=== PATIENT | male | born 1965 | race Caucasian/White ===

== ENCOUNTER 2017-01-10 10:36 | Emergency (ER) | payer SELFPAY ==
[~2017-01-10] VITALS: Ht 165.1 cm; Wt 74.4 kg
[2017-01-10] MEDS ORDERED: KETOROLAC TROMETHAMINE 30 MG/ML INJ. IV ONE (11:15)
[2017-01-10] MEDS ORDERED: ONDANSETRON PF 4 MG/2 ML VIAL. IV ONE (11:15)
[2017-01-10] MEDS ORDERED: PANTOPRAZOLE IV PUSH 40 MG VIAL. IVP ONE (11:15)
[2017-01-10 11:55] LABS: BASO % 1 % (0-3); EOS % 1 % (0-3); HEMATOCRIT 42.1 % (39.0-53.0); HEMOGLOBIN 14.8 g/dL (13.0-17.5); LYMPH # 0.8 x10^3/uL (1.0-4.8); LYMPH % 15 % (24-48); MEAN CORPUSCULAR HEMOGLOBIN 31 pg (25-35); MEAN CORPUSCULAR HGB CONC 35 g/dL (31-37); MEAN CORPUSCULAR VOLUME 88 fL (79-100); MONO % 8 % (0-9); NEUT % 76 % (31-73); PLATELET COUNT 106 x10^3/uL (140-400); RED BLOOD COUNT 4.79 x10^6/uL (4.30-5.70); RED CELL DISTRIBUTION WIDTH 13.7 % (11.5-14.5); WHITE BLOOD COUNT 5.3 x10^3/uL (4.0-11.0)
[2017-01-10 12:01] LABS: CALCIUM 8.5 mg/dL (8.5-10.1); CREATININE 1.1 mg/dL (0.7-1.3)
[2017-01-10 12:07] LABS: ALBUMIN 3.9 g/dL (3.4-5.0); ALBUMIN/GLOBULIN RATIO 1.1 (1.0-1.7); MAGNESIUM 1.9 mg/dL (1.8-2.4); TOTAL BILIRUBIN 0.8 mg/dL (0.2-1.0); TOTAL PROTEIN 7.6 g/dL (6.4-8.2)
[2017-01-10] MEDS ORDERED: IOHEXOL 300 MG/ML 75 ML VIAL IV ONE (12:15)
--- NOTE | 2017-01-10 12:48 | RAD ---
Indication: Right upper quadrant pain today. Technique: Axial images and coronal and sagittal reformatted images are provided. 75 mL of intravenous Omnipaque 300 was administered without complication. No comparison is available. One or more of the following individualized dose reduction techniques were utilized for this examination: 1. Automated exposure control 2. Adjustment of the mA and/or kV according to patient size 3. Use of iterative reconstruction technique Findings: The lung bases are clear. There is no pleural effusion. The heart is not enlarged. There is mild fatty infiltration of the liver. Density in the gallbladder near its neck could represent stone. Pancreas and adrenals are unremarkable. Spleen is enlarged. There is atheromatous disease in the abdominal aorta. There is stranding of the right perinephric fat and delay in nephrogram phase. There are right renal nonobstructing calculi up to 3 mm in size. There is also an obstructing stone in the proximal right ureter measuring 12 mm craniocaudal. This is just beyond the UPJ. Lack of oral contrast limits evaluation of bowel. There is no bowel obstruction or mural thickening. There are a few diverticula in the colon without findings of diverticulitis. Appendix is not definitely visualized, there are no secondary findings of an appendicitis. There is no bladder calculus. There are calcified phleboliths. Prostate is not enlarged. There are L5 pars defects. There is grade 1 spondylolisthesis at L5-S1. There are degenerative changes in the spine. Impression: 1. There is a 12 mm obstructing calculus in the proximal right ureter. Additional nonobstructing right renal calculi. 2. Fatty infiltration of the liver. 3. Splenomegaly. 4. Density at the gallbladder neck could represent stone.
--- NOTE | 2017-01-10 12:55 | PHYS DOC ---
Past Medical History Past Medical History: Kidney Stone Past Surgical History: No Surgical History Alcohol Use: None Drug Use: None Adult General Chief Complaint Chief Complaint: ABDOMINAL PAIN HPI HPI Patient is a 51 year old male presenting to the emergency department for evaluation of right upper quadrant and flank pain that started last night and has persisted. Some nausea but no vomiting. He has a history of kidney stones in the past but says that this is different as it is hurting in his abdomen more. He denies any fevers chills diarrhea constipation dysuria or hematuria. Is that his urine is darker than usual however. Review of Systems Review of Systems Constitutional: Denies fever or chills [] Respiratory: Denies cough or shortness of breath [] Cardiovascular: No additional information not addressed in HPI [] GI: + abdominal pain, nausea. No vomiting, bloody stools or diarrhea [] : Denies dysuria or hematuria [] Musculoskeletal: + back pain Current Medications Current Medications Current Medications Medications (Trade) Dose Ordered Sig/Dinora Start Time Stop Time Status Last Admin Dose Admin Iohexol (Omnipaque 300 Mg/ml) 75 ml 1X ONCE 01/10/17 12:15 01/10/17 12:16 DC 01/10/17 12:23 75 ML Ketorolac Tromethamine (Toradol) 30 mg 1X ONCE 01/10/17 11:15 01/10/17 11:18 DC 01/10/17 11:54 30 MG Ondansetron HCl (Zofran) 4 mg 1X ONCE 01/10/17 11:15 01/10/17 11:18 DC 01/10/17 11:56 4 MG Pantoprazole Sodium (Protonix Vial) 40 mg 1X ONCE 01/10/17 11:15 01/10/17 11:18 DC 01/10/17 11:46 40 MG Allergies Allergies Allergies Coded Allergies Type Severity Reaction Last Updated Verified No Known Drug Allergies 01/10/17 No Physical Exam Physical Exam Constitutional: Well developed, well nourished, no acute distress, non-toxic appearance. [] Cardiovascular:Heart rate regular rhythm, no murmur [] Lungs & Thorax: Bilateral breath sounds clear to auscultation [] Abdomen: Bowel sounds normal, soft, No tenderness, no masses, no pulsatile masses. [] Skin: Warm, dry, no erythema, no rash. [] Back: No tenderness, + R CVA tenderness. [] Current Patient Data Vital Signs Vital Signs Date Time Temp Pulse Resp B/P (MAP) Pulse Ox O2 Delivery O2 Flow Rate FiO2 01/10/17 13:30 68 18 119/63 (81) 96 01/10/17 11:58 Room Air 01/10/17 11:10 97.0 97.0 Lab Values Laboratory Tests Test 01/10/17 11:37 01/10/17 13:00 White Blood Count 5.3 x10^3/uL (4.0-11.0) Red Blood Count 4.79 x10^6/uL (4.30-5.70) Hemoglobin 14.8 g/dL (13.0-17.5) Hematocrit 42.1 % (39.0-53.0) Mean Corpuscular Volume 88 fL (79-100) Mean Corpuscular Hemoglobin 31 pg (25-35) Mean Corpuscular Hemoglobin Concent 35 g/dL (31-37) Red Cell Distribution Width 13.7 % (11.5-14.5) Platelet Count 106 x10^3/uL (140-400) L Neutrophils (%) (Auto) 76 % (31-73) H Lymphocytes (%) (Auto) 15 % (24-48) L Monocytes (%) (Auto) 8 % (0-9) Eosinophils (%) (Auto) 1 % (0-3) Basophils (%) (Auto) 1 % (0-3) Neutrophils # (Auto) 4.0 x10^3uL (1.8-7.7) Lymphocytes # (Auto) 0.8 x10^3/uL (1.0-4.8) L Monocytes # (Auto) 0.4 x10^3/uL (0.0-1.1) Eosinophils # (Auto) 0.1 x10^3/uL (0.0-0.7) Basophils # (Auto) 0.0 x10^3/uL (0.0-0.2) Sodium Level 138 mmol/L (136-145) Potassium Level 4.0 mmol/L (3.5-5.1) Chloride Level 105 mmol/L (98-107) Carbon Dioxide Level 27 mmol/L (21-32) Anion Gap 6 (6-14) Blood Urea Nitrogen 16 mg/dL (8-26) Creatinine 1.1 mg/dL (0.7-1.3) Estimated GFR (Cockcroft-Gault) 70.0 BUN/Creatinine Ratio 15 (6-20) Glucose Level 115 mg/dL (70-99) H Calcium Level 8.5 mg/dL (8.5-10.1) Magnesium Level 1.9 mg/dL (1.8-2.4) Total Bilirubin 0.8 mg/dL (0.2-1.0) Aspartate Amino Transferase (AST) 65 U/L (15-37) H Alanine Aminotransferase (ALT) 112 U/L (16-63) H Alkaline Phosphatase 76 U/L (46-116) Creatine Kinase 71 U/L (39-308) Troponin I Quantitative < 0.017 ng/mL (0.000-0.055) XM-Pfc-Z-Type Natriuretic Peptide 65 pg/mL (0-124) Total Protein 7.6 g/dL (6.4-8.2) Albumin 3.9 g/dL (3.4-5.0) Albumin/Globulin Ratio 1.1 (1.0-1.7) Lipase 115 U/L (73-393) Urine Collection Type Unknown Urine Color Yellow Urine Clarity Clear Urine pH 6.0 Urine Specific [place] 1.020 Urine Protein Negative mg/dL (NEG-TRACE) Urine Glucose (UA) Negative mg/dL (NEG) Urine Ketones (Stick) Negative mg/dL (NEG) Urine Blood Large (NEG) Urine Nitrite Negative (NEG) Urine Bilirubin Negative (NEG) Urine Urobilinogen Dipstick 0.2 mg/dL (0.2 mg/dL) Urine Leukocyte Esterase Negative (NEG) Urine RBC 20-40 /HPF (0-2) Urine WBC Occ /HPF (0-4) Urine Squamous Epithelial Cells None /LPF Urine Bacteria Few /HPF (0-FEW) Laboratory Tests 01/10/17 11:37 Laboratory Tests 01/10/17 11:37 EKG EKG [] Radiology/Procedures Radiology/Procedures Indication: Right upper quadrant pain today. Technique: Axial images and coronal and sagittal reformatted images are provided. 75 mL of intravenous Omnipaque 300 was administered without complication. No comparison is available. One or more of the following individualized dose reduction techniques were utilized for this examination: 1. Automated exposure control 2. Adjustment of the mA and/or kV according to patient size 3. Use of iterative reconstruction technique Findings: The lung bases are clear. There is no pleural effusion. The heart is not enlarged. There is mild fatty infiltration of the liver. Density in the gallbladder near its neck could represent stone. Pancreas and adrenals are unremarkable. Spleen is enlarged. There is atheromatous disease in the abdominal aorta. There is stranding of the right perinephric fat and delay in nephrogram phase. There are right renal nonobstructing calculi up to 3 mm in size. There is also an obstructing stone in the proximal right ureter measuring 12 mm craniocaudal. This is just beyond the UPJ. Lack of oral contrast limits evaluation of bowel. There is no bowel obstruction or mural thickening. There are a few diverticula in the colon without findings of diverticulitis. Appendix is not definitely visualized, there are no secondary findings of an appendicitis. There is no bladder calculus. There are calcified phleboliths. Prostate is not enlarged. There are L5 pars defects. There is grade 1 spondylolisthesis at L5-S1. There are degenerative changes in the spine. Impression: 1. There is a 12 mm obstructing calculus in the proximal right ureter. Additional nonobstructing right renal calculi. 2. Fatty infiltration of the liver. 3. Splenomegaly. 4. Density at the gallbladder neck could represent stone. DICTATED and SIGNED BY: CLAIRE MOLINA MD DATE: 01/10/17 1239 Course & Med Decision Making Course & Med Decision Making Patient has very large right ureter stone that is proximal. I told him this is very unlikely to pass on his own that he is insistent on going home and trying to pass it. To the urologist stationary steam engineer Dr. Gomez. He said to go ahead and let him go and he will follow with him later this week and pursue intervention if needed later on. Patient aware and agreeable with plan for discharge and verbalized understanding of the need for short-term urology follow-up and strict ER return precautions discussed including worsening pain fevers vomiting or other general concerns. Dragon Disclaimer Dragon Disclaimer This electronic medical record was generated, in whole or in part, using a voice recognition dictation system. Departure Departure Impression: Primary Impression: Ureteral stone Disposition: HOME, SELF-CARE Condition: GOOD Referrals: FANTASMA GOMEZ DO Patient Instructions: Kidney Stones Additional Instructions: Make sure that you are drinking plenty of water. Take 400 mg of ibuprofen every 6 hours and the Percocet for breakthrough pain. Scripts Ondansetron (ZOFRAN ODT) 4 Mg Tab.rapdis 4 MG PO BID Y for NAUSEA/VOMITING, #10 TAB Prov: COLT RAHMAN DO 01/10/17 Oxycodone/Apap 5-325 (PERCOCET 5-325 MG TABLET) 1 Each Tablet 1 TAB PO PRN Q6HRS Y for PAIN, #20 TAB 0 Refills Prov: COLT RAHMAN DO 01/10/17 Tamsulosin Hcl (FLOMAX) 0.4 Mg Cap.er.24h 0.4 MG PO DAILY, #10 TAB Prov: COLT RAHMAN DO 01/10/17 COLT RAHMAN DO January 10, 2017 12:54
[2017-01-10 13:20] LABS: BILIRUBIN,URINE NEGATIVE (NEG); GLUCOSE,URINE NEGATIVE (NEG); NITRITE,URINE NEGATIVE (NEG); PROTEIN,URINE NEGATIVE (NEG-TRACE); UROBILINOGEN,URINE 0.2 mg/dL (0.2 mg/dL)
[2017-01-10 13:30] VITALS: BP 119/63
[2017-01-10 13:32] LABS: BACTERIA,URINE FEW /HPF (0-FEW); RBC,URINE 20-40 /HPF (0-2); WBC,URINE OCC /HPF (0-4)
[2017-01-10] MEDS ORDERED: OXYC-323 PO (13:45)
[2017-01-10] MEDS ORDERED: TAMS0.4C97 PO (13:45)
[2017-01-10] MEDS ORDERED: ONDA4TAB10 PO (13:45)
--- NOTE | 2017-01-10 14:41 | EKG ---
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
== END 2017-01-10 13:50 | disposition home or self-care (01) ==
LOC: ER 11:50
DX: N20.1 Calculus of ureter (principal)
CPT/HCPCS: 36415; 74177; 80053; 81001; 82550; 83690; 83735; 83880; 84484; 85027; 93005; 96374; 96375; 99285; C9113; J1885; J2405; Q9967

== ENCOUNTER 2017-12-13 10:51 | Emergency (ER) | payer SELFPAY ==
[2017-12-13 11:36] LABS: ADD MAN DIFF? NO
[2017-12-13] MEDS: IV NORMAL SALINE 1000ML BAG 1,000 ML IV (11:36)
[2017-12-13] MEDS: ONDANSETRON PF 4 MG/2 ML VIAL. IV (11:37)
[2017-12-13] MEDS: KETOROLAC 30 MG/ML INJ. IV (11:39)
[2017-12-13 11:42] LABS: BASO % 1 % (0-3); EOS # 0.1 x10^3/uL (0.0-0.7); EOS % 2 % (0-3); HEMATOCRIT 41.4 % (39.0-53.0); HEMOGLOBIN 15.1 g/dL (13.0-17.5); LYMPH # 1.3 x10^3/uL (1.0-4.8); LYMPH % 21 % (24-48); MEAN CORPUSCULAR HEMOGLOBIN 32 pg (25-35); MEAN CORPUSCULAR HGB CONC 36 g/dL (31-37); MEAN CORPUSCULAR VOLUME 87 fL (79-100); MONO # 0.5 x10^3/uL (0.0-1.1); MONO % 7 % (0-9); NEUT # 4.3 x10^3uL (1.8-7.7); NEUT % 70 % (31-73); PLATELET COUNT 119 x10^3/uL (140-400); RED BLOOD COUNT 4.74 x10^6/uL (4.30-5.70); RED CELL DISTRIBUTION WIDTH 12.9 % (11.5-14.5); WHITE BLOOD COUNT 6.1 x10^3/uL (4.0-11.0)
[2017-12-13 12:01] LABS: ANION GAP 7 (6-14); BLOOD UREA NITROGEN 22 mg/dL (8-26); BUN/CREATININE RATIO 16 (6-20); CALCIUM 9.3 mg/dL (8.5-10.1); CARBON DIOXIDE 27 mmol/L (21-32); CHLORIDE 105 mmol/L (98-107); CREATININE 1.4 mg/dL (0.7-1.3); GFR 52.8; GLUCOSE 107 mg/dL (70-99); POTASSIUM 3.8 mmol/L (3.5-5.1); SODIUM 139 mmol/L (136-145)
[2017-12-13 12:06] LABS: ALBUMIN 3.9 g/dL (3.4-5.0); ALBUMIN/GLOBULIN RATIO 0.9 (1.0-1.7); ALK PHOS 87 U/L (46-116); ALT (SGPT) 158 U/L (16-63); AST (SGOT) 91 U/L (15-37); LIPASE 129 U/L (73-393); TOTAL BILIRUBIN 0.9 mg/dL (0.2-1.0); TOTAL PROTEIN 8.1 g/dL (6.4-8.2)
[2017-12-13 13:07] LABS: BILIRUBIN,URINE NEGATIVE (NEG); CLARITY,URINE CLEAR; COLOR,URINE YELLOW; GLUCOSE,URINE NEGATIVE (NEG); NITRITE,URINE NEGATIVE (NEG); PH,URINE 5.5; PROTEIN,URINE NEGATIVE (NEG-TRACE); UROBILINOGEN,URINE 0.2 mg/dL (0.2 mg/dL)
[2017-12-13 13:17] LABS: BACTERIA,URINE 0 /HPF (0-FEW); SQUAMOUS EPITHELIAL CELL,UR FEW /LPF; WBC,URINE 0 /HPF (0-4)
== END 2017-12-13 13:45 | disposition home or self-care (01) ==
LOC: ER 10:51
DX: N20.0 Calculus of kidney (principal)
CPT/HCPCS: 36415; 74176; 80053; 81001; 83690; 85025; 96361; 96374; 96375; 99285-25; J1885; J2405; J7030

== ENCOUNTER 2019-08-26 18:04 | Emergency (ER) | payer SELFPAY ==
[~2019-08-26] VITALS: Ht 172.7 cm; Wt 86.2 kg
[~2019-08-26 18:04] MED LIST: CIPR500T94 PO; KETO10TA PO; ONDA4TAB10 PO; OXYC1TAB15 PO; TAMS0.4C97 PO
--- NOTE | 2019-08-26 18:44 | PHYS DOC ---
Past Medical History Past Medical History: Kidney Stone Past Surgical History: No Surgical History Alcohol Use: Rarely Drug Use: None Adult General Chief Complaint Chief Complaint: SHORTNESS OF BREATH HPI HPI Patient is a 54 year old male who presented to ER today for evaluation of 2 days history of cough, fever and chill, trouble breathing. Patient is exposed to influenza at home. Patient said his and daughter both were tested positive for flu recently. He denies any chest pain, no abdominal pain, no nausea vomiting. Patient denied headache. Patient denies any neck pain. aLL OTHER ros IS NEGATIVE UNLESS OTHERWISE NOTED IN hpi Review of Systems Review of Systems See above Current Medications Current Medications Current Medications Medications (Trade) Dose Ordered Sig/Dinora Start Time Stop Time Status Last Admin Dose Admin Sodium Chloride 1,000 ml @ 1,000 mls/hr 1X ONCE 08/26/19 18:45 08/26/19 19:44 DC 08/26/19 19:04 1,000 MLS/HR Allergies Allergies Allergies Coded Allergies Type Severity Reaction Last Updated Verified No Known Drug Allergies 01/10/17 No Physical Exam Physical Exam Constitutional: Well developed, well nourished, no acute distress, non-toxic appearance. [] HENT: Normocephalic, atraumatic, bilateral external ears normal, oropharynx moist, no oral exudates, nose normal. [] Eyes: PERRLA, EOMI, conjunctiva normal, no discharge. [] Neck: Normal range of motion, no tenderness, supple, no stridor. [] Cardiovascular:Heart rate regular rhythm, no murmur [] Lungs & Thorax: Bilateral breath sounds clear to auscultation [] Abdomen: Bowel sounds normal, soft, no tenderness, no masses, no pulsatile masses. [] Skin: Warm, dry, no erythema, no rash. [] Back: No tenderness, no CVA tenderness. [] Extremities: No tenderness, no cyanosis, no clubbing, ROM intact, no edema. [] Neurologic: Alert and oriented X 3, normal motor function, normal sensory function, no focal deficits noted. [] Psychologic: Affect normal, judgement normal, mood normal. [] Current Patient Data Vital Signs Vital Signs Date Time Temp Pulse Resp B/P (MAP) Pulse Ox O2 Delivery O2 Flow Rate FiO2 08/26/19 19:35 90 20 164/79 (107) 96 Room Air 08/26/19 18:30 99.4 99.4 Lab Values Laboratory Tests Test 08/26/19 18:45 08/26/19 18:50 08/26/19 19:08 Influenza Type A Antigen Positive (NEGATIVE) Influenza Type B Antigen Negative (NEGATIVE) White Blood Count 4.3 x10^3/uL (4.0-11.0) Red Blood Count 5.02 x10^6/uL (4.30-5.70) Hemoglobin 15.2 g/dL (13.0-17.5) Hematocrit 44.0 % (39.0-53.0) Mean Corpuscular Volume 88 fL (79-100) Mean Corpuscular Hemoglobin 30 pg (25-35) Mean Corpuscular Hemoglobin Concent 35 g/dL (31-37) Red Cell Distribution Width 13.3 % (11.5-14.5) Platelet Count 119 x10^3/uL (140-400) L Neutrophils (%) (Auto) 54 % (31-73) Lymphocytes (%) (Auto) 27 % (24-48) Monocytes (%) (Auto) 18 % (0-9) H Eosinophils (%) (Auto) 1 % (0-3) Basophils (%) (Auto) 1 % (0-3) Neutrophils # (Auto) 2.3 x10^3/uL (1.8-7.7) Lymphocytes # (Auto) 1.1 x10^3/uL (1.0-4.8) Monocytes # (Auto) 0.8 x10^3/uL (0.0-1.1) Eosinophils # (Auto) 0.0 x10^3/uL (0.0-0.7) Basophils # (Auto) 0.0 x10^3/uL (0.0-0.2) Sodium Level 136 mmol/L (136-145) Potassium Level 4.0 mmol/L (3.5-5.1) Chloride Level 103 mmol/L (98-107) Carbon Dioxide Level 22 mmol/L (21-32) Anion Gap 11 (6-14) Blood Urea Nitrogen 16 mg/dL (8-26) Creatinine 1.1 mg/dL (0.7-1.3) Estimated GFR (Cockcroft-Gault) 69.2 BUN/Creatinine Ratio 15 (6-20) Glucose Level 104 mg/dL (70-99) H Lactic Acid Level 0.8 mmol/L (0.4-2.0) Calcium Level 8.7 mg/dL (8.5-10.1) Total Bilirubin 1.0 mg/dL (0.2-1.0) Aspartate Amino Transferase (AST) 82 U/L (15-37) H Alanine Aminotransferase (ALT) 105 U/L (16-63) H Alkaline Phosphatase 77 U/L (46-116) Total Protein 8.0 g/dL (6.4-8.2) Albumin 4.1 g/dL (3.4-5.0) Albumin/Globulin Ratio 1.1 (1.0-1.7) Urine Collection Type Unknown Urine Color Yellow Urine Clarity Clear Urine pH 5.5 Urine Specific [place] 1.025 Urine Protein Negative mg/dL (NEG-TRACE) Urine Glucose (UA) Negative mg/dL (NEG) Urine Ketones (Stick) Negative mg/dL (NEG) Urine Blood Negative (NEG) Urine Nitrite Negative (NEG) Urine Bilirubin Negative (NEG) Urine Urobilinogen Dipstick 2.0 mg/dL (0.2 mg/dL) Urine Leukocyte Esterase Negative (NEG) Urine RBC 1-2 /HPF (0-2) Urine WBC 1-4 /HPF (0-4) Urine Bacteria 0 /HPF (0-FEW) Urine Mucus Mod /LPF Laboratory Tests 08/26/19 18:50 Laboratory Tests 08/26/19 18:50 EKG EKG [] Radiology/Procedures Radiology/Procedures [] Course & Med Decision Making Course & Med Decision Making Pertinent Labs and Imaging studies reviewed. (See chart for details) [] Dragon Disclaimer Dragon Disclaimer This electronic medical record was generated, in whole or in part, using a voice recognition dictation system. Departure Departure Impression: Primary Impression: Influenza A Disposition: 01 HOME, SELF-CARE Condition: STABLE Referrals: OWEN GONZALEZ (PCP) FOLLOW UP WITH YOUR DOCTOR NEXT WEEK. Patient Instructions: Influenza A (H1N1) Scripts Oseltamivir Phosphate (TAMIFLU) 75 Mg Capsule 1 CAP PO BID, #10 CAP Prov: MARILIA MAHAN DO 08/26/19 MARILIA MAHAN DO Aug 26, 2019 18:44
[2019-08-26] MEDS ORDERED: IV NORMAL SALINE 1000ML BAG 1,000 ML IV ONE (18:45)
[2019-08-26 19:10] LABS: CALCIUM 8.7 mg/dL (8.5-10.1); CREATININE 1.1 mg/dL (0.7-1.3); GFR 69.2
[2019-08-26 19:12] LABS: BASO % 1 % (0-3); EOS % 1 % (0-3); HEMOGLOBIN 15.2 g/dL (13.0-17.5); LYMPH # 1.1 x10^3/uL (1.0-4.8); LYMPH % 27 % (24-48); MEAN CORPUSCULAR HEMOGLOBIN 30 pg (25-35); MEAN CORPUSCULAR HGB CONC 35 g/dL (31-37); MEAN CORPUSCULAR VOLUME 88 fL (79-100); MONO # 0.8 x10^3/uL (0.0-1.1); MONO % 18 % (0-9); NEUT # 2.3 x10^3/uL (1.8-7.7); NEUT % 54 % (31-73); PLATELET COUNT 119 x10^3/uL (140-400); RED BLOOD COUNT 5.02 x10^6/uL (4.30-5.70); RED CELL DISTRIBUTION WIDTH 13.3 % (11.5-14.5); WHITE BLOOD COUNT 4.3 x10^3/uL (4.0-11.0)
[2019-08-26 19:16] LABS: BILIRUBIN,URINE NEGATIVE (NEG); CLARITY,URINE CLEAR; COLOR,URINE YELLOW; NITRITE,URINE NEGATIVE (NEG); PH,URINE 5.5; PROTEIN,URINE NEGATIVE (NEG-TRACE)
[2019-08-26 19:16] LABS: ALBUMIN 4.1 g/dL (3.4-5.0); ALBUMIN/GLOBULIN RATIO 1.1 (1.0-1.7)
[2019-08-26 19:22] LABS: INFLUENZA A PATIENT POSITIVE (NEGATIVE); INFLUENZA B PATIENT NEGATIVE (NEGATIVE)
[2019-08-26 19:34] LABS: BACTERIA,URINE 0 /HPF (0-FEW)
[2019-08-26 20:10] VITALS: BP 147/77
[2019-08-26] MEDS ORDERED: OSEL75CA PO (20:36)
--- NOTE | 2019-08-26 20:48 | RAD ---
EXAM: CHEST 2 VIEWS. HISTORY: Cough and fever. COMPARISON: None. FINDINGS: Frontal and lateral views of the chest are obtained. There are no confluent infiltrates. There is no pneumothorax or pleural effusion. The heart is not enlarged. IMPRESSION: 1. No confluent infiltrates. Electronically signed by: Nicki Gomes MD (08/26/2019 8:45 PM) [facility]
== END 2019-08-26 20:47 | disposition home or self-care (01) ==
LOC: ER 18:04
DX: J10.1 Influenza due to other identified influenza virus with other respiratory manifestations (principal); R50.9 Fever, unspecified; R05 Cough; R06.00 Dyspnea, unspecified; Z87.442 Personal history of urinary calculi
CPT/HCPCS: 36415; 71046; 80053; 81001; 83605; 85025; 87040; 87804; 99285; J7030

== ENCOUNTER 2022-01-01 10:02 | Emergency (ER) | payer SELFPAY ==
[~2022-01-01] VITALS: Ht 172.7 cm; Wt 90.0 kg
[~2022-01-01 10:02] MED LIST changes: +OSEL75CA PO
[2022-01-01] MEDS ORDERED: KETOROLAC 30 MG/ML VIAL. IVP ONE (10:30)
[2022-01-01] MEDS ORDERED: IV NORMAL SALINE 1000ML BAG 1,000 ML IV SCH (10:30)
--- NOTE | 2022-01-01 10:32 | PHYS DOC ---
Past Medical History Past Medical History: Kidney Stone Past Surgical History: No Surgical History Smoking Status: Former Smoker Alcohol Use: Rarely Drug Use: None General Adult EDM: Chief Complaint: FLANK PAIN HPI: HPI: Patient is a 56 year old male who presents with 30 minutes prior to arrival began having left flank pain that goes to the side that feels like a spasm type pain. 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 He states he does not drink a lot of water. He states he drinks Coke most the time. Has had a history of kidney stone. He rates his pain a 10 out of 10. He did not take any pain medicine this morning. He denies urinary sympt om, abdominal pain, nausea, vomiting, diarrhea, fever, headache, syncope, dizziness, numbness or tingling, focal weakness, chest pain, shortness of air. Review of Systems: Review of Systems: Constitutional: Denies fever or chills. [] Eyes: Denies change in visual acuity. [] HENT: Denies nasal congestion or sore throat. [] Respiratory: Denies cough or shortness of breath. [] Cardiovascular: Denies chest pain or edema. [] GI: Denies abdominal pain, nausea, vomiting, bloody stools or diarrhea. [] : Denies dysuria. [] Musculoskeletal: + Left flank back pain or denies joint pain. [] Integument: Denies rash. [] Neurologic: Denies headache, focal weakness or sensory changes. [] Endocrine: Denies polyuria or polydipsia. [] Lymphatic: Denies swollen glands. [] Psychiatric: Denies depression or anxiety. [] Heart Score: C/O Chest Pain: No Allergies: Allergies: Allergies Coded Allergies Type Severity Reaction Last Updated Verified No Known Drug Allergies 01/10/17 No Physical Exam: PE: Constitutional: Well developed, well nourished, no acute distress, non-toxic appearance. [] HENT: Normocephalic, atraumatic, bilateral external ears normal, oropharynx m oist, no oral exudates, nose normal. [] Eyes: PERRLA, EOMI, conjunctiva normal, no discharge. [] Neck: Normal range of motion, no tenderness, supple, no stridor. [] Cardiovascular:Heart rate regular rhythm, no murmur [] Lungs & Thorax: Bilateral breath sounds clear to auscultation [] Abdomen: Bowel sounds normal, soft, no tenderness, no masses, no pulsatile masses. [] Skin: Warm, dry, no erythema, no rash. [] Back: No tenderness, left CVA tenderness. [] Extremities: No tenderness, no cyanosis, no clubbing, ROM intact, no edema. [] Neurologic: Alert and oriented X 3, normal motor function, normal sensory function, no focal deficits noted. [] Psychologic: Affect normal, judgement normal, mood normal. [] Current Patient Data: Vital Signs: Vital Signs Date Time Temp Pulse Resp B/P (MAP) Pulse Ox O2 Delivery O2 Flow Rate FiO2 01/01/22 10:20 97.6 87 15 167/84 (111) 98 Room Air 97.6 EKG: EKG: [] Radiology/Procedures: Radiology/Procedures: [] Impression: [facility] [address] [place], [place] [id number] IMAGING REPORT Signed PATIENT: ALF JUDD ACCOUNT: [id number] : 1965 LOCATION: ER AGE: 56 SEX: M EXAM STATUS: REG ER ORD. PHYSICIAN: ARI FLORES APRN REASON: left flank pain PROCEDURE: CT ABD PELV W/ IV CONTRST ONLY EXAM: Abdomen and pelvis CT with intravenous contrast. HISTORY: Left flank pain. TECHNIQUE: Computed tomographic images of the abdomen and pelvis were obtained following the administration of intravenous contrast.*One or more of the following individualized dose reduction techniques were utilized for this examination: 1. Automated exposure control. 2. Adjustment of the mA and/or kV according to patient size. 3. Use of iterative reconstruction technique. COMPARISON: 12/13/2017. FINDINGS: Evaluation of the lower thorax demonstrates posterior dependent and basilar atelectasis. There is a 2 mm nodule within the posterior right lower lobe, likely benign based on size. The heart is normal in size. There is hepatomegaly and hepatic steatosis. There is hepatic surface nodularity likely due to superimposed cirrhosis. There are small nodules along the gallbladder fossa which are stable compared to the prior study and likely due to lymph nodes rather than associated with the gallbladder wall. There are additional prominent lymph nodes within the polly hepatis. There is no convincing cholecystitis. The pancreas is unremarkable. The spleen is enlarged, measuring 15.0 cm in transaxial dimension. There is a 1.4 cm right adrenal nodule, stable in appearance. There is mild left hydronephrosis and hydroureter extending to a 2 mm stone with in the left bladder base at the ureterovesical junction. There is left perinephric and periureteral stranding due to obstructive uropathy. There is mild right renal atrophy with associated cortical thinning and lobulation. There may be a tiny right renal cortical cyst. There is a 1.8 cm calcification within the right bladder base. The bladder is nearly empty. This limits evaluation for a bladder mass. There is no appendicitis. There is no bowel obstruction. The prostate is within normal in size. There is no aortic aneurysm. There are multiple prominent retroperitoneal lymph nodes. There is a small fat-containing left inguinal herni a. There is degenerative change involving both hips and the lumbar spine. There is no acute or suspicious osseous finding. There is grade 1 anterolisthesis with pars interarticularis defects at L5-S1. IMPRESSION: 1. Mild left hydronephrosis and hydroureter secondary to an obstructing 2 mm stone at the left ureterovesical junction. 2. 1.8 cm calcification within the right bladder base likely due to a bladder stone. No convincing associated bladder mass is seen, with evaluation limited to small bladder volume. 3. Hepatomegaly, hepatic steatosis and cirrhosis. 4. Splenomegaly. 5. Prominent lymph nodes throughout the polly hepatis and retroperitoneum, similar or decreased compared to the prior exam. 6. Grade 1 anterolisthesis with pars defects at L5-S1. 7. Stable small right adrenal nodule. The interval stability favors a benign adenoma. Electronically signed by: Barb Barnes MD (01/01/2022 11:57 AM) [id number] DICTATED and SIGNED BY: BARB BARNES MD DATE: 01/01/22 1155 Course & Med Decision Making: Course & Med Decision Making Pertinent Labs and Imaging studies reviewed. (See chart for details) See HPI. Alert and oriented x4. Ambulatory steady gait. Speaks in full clear sentences. Left CVA tenderness. Abdomen is soft and nontender. Afebrile. Urinalysis does show some blood but he is not having any problems urinating. Roxie nurse practitioner with urology is here to see the patient. After looking over patient findings and speaking with the patient patient wants to go home and try to pass it. Patient be given a strainer and Flomax. Nurse practitioner states that she he does not need any antibiotics at this time. [] Winifred Disclaimer: Winifred Disclaimer: This electronic medical record was generated, in whole or in part, using a voice recognition dictation system. Departure Departure Impression: Primary Impression: Kidney stone on left side Disposition: HOME / SELF CARE / HOMELESS Condition: STABLE Referrals: OWEN GONZALEZ (PCP) ERIKA INGRAM MD Patient Instructions: Diet for Kidney Stones, Kidney Stones Additional Instructions: Follow-up with the urology clinic. Take medication as prescribed and with food. Drink 6-8 bottled erickson a day. Remember some pain medications will make you sleepy so you should not work or drive while taking these medications. Scripts Ibuprofen (IBUPROFEN) 600 Mg Tablet 600 MG PO PRN Q6HRS PRN for INFLAMMATION, #25 TAB Prov: ARI FLORES APRN 01/01/22 Oxycodone/Apap 5-325 (PERCOCET 5-325 MG TABLET ) 1 Each Tablet 1 TAB PO QIDPRN PRN for PAIN MDD 4 Tablet(s) for 5 Days, #20 TAB 0 Refills Prov: ARI FLORES APRN 01/01/22 Tamsulosin Hcl (FLOMAX) 0.4 Mg Cap.er.24h 1 CAP PO DAILY, #30 CAP Prov: ARI FLORES APRN 01/01/22 ARI FLORES APRN January 01, 2022 10:32
[2022-01-01 11:03] LABS: BASO % 1 % (0-3); EOS # 0.1 x10^3/uL (0.0-0.7); EOS % 3 % (0-3); HEMATOCRIT 45.4 % (39.0-53.0); LYMPH # 1.3 x10^3/uL (1.0-4.8); LYMPH % 33 % (24-48); MEAN CORPUSCULAR HEMOGLOBIN 31 pg (25-35); MEAN CORPUSCULAR HGB CONC 35 g/dL (31-37); MEAN CORPUSCULAR VOLUME 88 fL (79-100); MONO # 0.4 x10^3/uL (0.0-1.1); MONO % 11 % (0-9); NEUT # 2.1 x10^3/uL (1.8-7.7); NEUT % 52 % (31-73); PLATELET COUNT 128 x10^3/uL (140-400); RED BLOOD COUNT 5.19 x10^6/uL (4.30-5.70); RED CELL DISTRIBUTION WIDTH 13.4 % (11.5-14.5); WHITE BLOOD COUNT 4.1 x10^3/uL (4.0-11.0)
[2022-01-01 11:08] LABS: BACTERIA,URINE FEW /HPF (0-FEW); RBC,URINE OCC /HPF (0-2); WBC,URINE OCC /HPF (0-4)
[2022-01-01 11:12] LABS: CALCIUM 8.8 mg/dL (8.5-10.1); CREATININE 1.1 mg/dL (0.7-1.3); GFR 68.8; POTASSIUM 3.5 mmol/L (3.5-5.1)
[2022-01-01 11:15] LABS: ALBUMIN 4.2 g/dL (3.4-5.0); MAGNESIUM 1.9 mg/dL (1.8-2.4); TOTAL BILIRUBIN 1.1 mg/dL (0.2-1.0); TOTAL PROTEIN 8.6 g/dL (6.4-8.2)
[2022-01-01] MEDS ORDERED: fentaNYL PF VIAL 100 MCG/2 ML VIAL IVP ONE (11:30)
[2022-01-01] MEDS ORDERED: CONTRAST GIVEN. MC PRN (11:30)
[2022-01-01] MEDS ORDERED: ORPHENADRINE CITRATE 60 MG/2 ML VIAL. IV ONE (11:30)
[2022-01-01] MEDS ORDERED: IOHEXOL 300 MG/ML 100ML VIAL. IV ONE (11:30)
--- NOTE | 2022-01-01 12:00 | RAD ---
EXAM: Abdomen and pelvis CT with intravenous contrast. HISTORY: Left flank pain. TECHNIQUE: Computed tomographic images of the abdomen and pelvis were obtained following the administ ration of intravenous contrast.*One or more of the following individualized dose reduction techniques were utilized for this examination: 1. Automated exposure control. 2. Adjustment of the mA and/or kV according to patient size. 3. Use of iterative reconstruction technique. COMPARISON: 12/13/2017. FINDINGS: Evaluation of the lower thorax demonstrates posterior dependent and basilar atelectasis. Th ere is a 2 mm nodule within the posterior right lower lobe, likely benign based on size. The heart is normal in size. There is hepatomegaly and hepatic steatosis. There is hepatic surface nodularity lik margaret due to superimposed cirrhosis. There are small nodules along the gallbladder fossa which are stab le compared to the prior study and likely due to lymph nodes rather than associated with the gallblad kenton wall. There are additional prominent lymph nodes within the polly hepatis. There is no convincing cholecystitis. The pancreas is unremarkable. The spleen is enlarged, measuring 15.0 cm in transaxial dimension. There is a 1.4 cm right adrenal nodule, stable in appearance. There is mild left hydronephrosis and hydroureter extending to a 2 mm stone within the left bladder b ase at the ureterovesical junction. There is left perinephric and periureteral stranding due to obstr uctive uropathy. There is mild right renal atrophy with associated cortical thinning and lobulation. There may be a tiny right renal cortical cyst. There is a 1.8 cm calcification within the right bladd er base. The bladder is nearly empty. This limits evaluation for a bladder mass. There is no appendicitis. There is no bowel obstruction. The prostate is within normal in size. There is no aortic aneurysm. There are multiple prominent retroperitoneal lymph nodes. There is a small fa t-containing left inguinal hernia. There is degenerative change involving both hips and the lumbar sp ine. There is no acute or suspicious osseous finding. There is grade 1 anterolisthesis with pars inte rarticularis defects at L5-S1. IMPRESSION: 1. Mild left hydronephrosis and hydroureter secondary to an obstructing 2 mm stone at the left ureter ovesical junction. 2. 1.8 cm calcification within the right bladder base likely due to a bladder stone. No convincing as sociated bladder mass is seen, with evaluation limited to small bladder volume. 3. Hepatomegaly, hepatic steatosis and cirrhosis. 4. Splenomegaly. 5. Prominent lymph nodes throughout the polly hepatis and retroperitoneum, similar or decreased mike red to the prior exam. 6. Grade 1 anterolisthesis with pars defects at L5-S1. 7. Stable small right adrenal nodule. The interval stability favors a benign adenoma. Electronically signed by: Barb Cast MD (01/01/2022 11:57 AM) [id number]
[2022-01-01] MEDS ORDERED: TAMSULOSIN 0.4 MG CAP.ER.24H. PO ONE (12:45)
[2022-01-01] MEDS ORDERED: TAMS0.4C97 PO (12:47)
[2022-01-01] MEDS ORDERED: OXYC1TAB15 PO (12:47)
[2022-01-01] MEDS ORDERED: IBUP-1007 PO (12:47)
[2022-01-01 12:54] VITALS: BP 146/74
--- NOTE | 2022-01-01 12:56 | PDOC2 ---
UROLOGY CONSULT DOS: DATE: 01/01/22 TIME: 12:48 Reason for Consult: Kidney stone 56M arrived to the emergency department for left-sided flank pain. This began 24 hours ago. Sharp and stabbing in nature. He had a CT scan done in the emergency department showing a 2 mm left UVJ stone as well as a 1.8 cm bladder stone. He has a history of kidney stones that have passed spontaneously. He denies any previous interventions or surgeries. He was given Toradol in the emergency department with mild improvement to his pain. Urine without any signs of infection. He denies any fevers or chills or nausea or vomiting. He denies any other chronic medical history. He has had outpatient PSAs drawn which are reported to be normal. He does report baseline weak urine stream, nocturia, frequency and urgency. He has never had any urology management but does not have insurance and does not seek routine medical care. ROS Constitutional: Denies fevers, chills, weakness Cardiovascular: Denies chest pain, palpitations Respiratory: Denies shortness of breath, wheezing, dyspnea on exertion GI: Denies abdominal pain, nausea, vomiting : Denies dysuria,+frequency, urgency,- hematuria, urinary retention,+ flank pain Skin: Denies rash, bruising Musculoskeletal: Denies extremity pain, extremity edema Psychiatric: Denies stress, anxiety Past Surgical History: No pertinent history Current Medications Current Medications Sodium Chloride 1,000 ml @ 1,000 mls/hr Q1H IV Last administered on 01/01/22at 10:30; Start 01/01/22 at 10:30; Stop 01/01/22 at 11:29; Status DC Ketorolac Tromethamine (Toradol 30mg Vial) 30 mg 1X ONCE IVP Last administered on 01/01/22at 10:30; Start 01/01/22 at 10:30; Stop 01/01/22 at 10:31; Status DC Fentanyl Citrate (Fentanyl 2ml Vial) 50 mcg 1X ONCE IVP Last administered on 01/01/22at 11:27; Start 01/01/22 at 11:30; Stop 01/01/22 at 11:31; Status DC Orphenadrine Citrate (Norflex) 60 mg 1X ONCE IV Last administered on 01/01/22at 11:27; Start 01/01/22 at 11:30; Stop 01/01/22 at 11:31; Status DC Iohexol (Omnipaque 300 Mg/ml) 75 ml 1X ONCE IV Last administered on 01/01/22at 11:38; Start 01/01/22 at 11:30; Stop 01/01/22 at 11:31; Status DC Info (CONTRAST GIVEN -- Rx MONITORING) 1 each PRN DAILY PRN MC SEE COMMENTS; Start 01/01/22 at 11:30; Stop 01/03/22 at 11:29 Tamsulosin HCl (Flomax) 0.4 mg 1X ONCE PO ; Start 01/01/22 at 12:45; Stop 01/01/22 at 12:46; Status DC Active Scripts Active Ibuprofen 600 Mg Tablet 600 Mg PO PRN Q6HRS PRN Flomax (Tamsulosin Hcl) 0.4 Mg Cap.er.24h 1 Cap PO DAILY Tamiflu (Oseltamivir Phosphate) 75 Mg Capsule 1 Cap PO BID Cipro (Ciprofloxacin Hcl) 500 Mg Tablet 1 Tab PO BID 7 Days Flomax (Tamsulosin Hcl) 0.4 Mg Cap.er.24h 1 Cap PO DAILY 7 Days Ketorolac Tromethamine 10 Mg Tablet 1 Tab PO TID Zofran Odt (Ondansetron) 4 Mg Tab.rapdis 4 Mg PO BID PRN Percocet 5-325 Mg Tablet (Oxycodone/Acetaminophen) 1 Each Tablet 1 Tab PO PRN Q6HRS PRN Flomax (Tamsulosin Hcl) 0.4 Mg Cap.er.24h 0.4 Mg PO DAILY Allergies: Coded Allergies: No Known Drug Allergies (Unverified , 01/10/17) Physical Examination GENERAL: awake, alert, oriented SKIN: warm, dry RESPIRATORY: Aerating well, symmetrical expansion GI: Soft, left lower quadrant tender to palpation, no guarding, no rebound : Exam deferred, left CVA tenderness MUSCULOSKELETAL: Moves all extremities, no edema NEURO: No gross abnormalities PSYCHIATRIC: Normal mood, normal affect, pleasant VITALS Vital Signs Date Time Temp Pulse Resp B/P (MAP) Pulse Ox O2 Delivery O2 Flow Rate FiO2 01/01/22 10:20 97.6 87 15 167/84 (111) 98 Room Air 97.6 Labs Laboratory Tests Test 01/01/22 10:10 White Blood Count 4.1 x10^3/uL (4.0-11.0) Red Blood Count 5.19 x10^6/uL (4.30-5.70) Hemoglobin 16.0 g/dL (13.0-17.5) Hematocrit 45.4 % (39.0-53.0) Mean Corpuscular Volume 88 fL (79-100) Mean Corpuscular Hemoglobin 31 pg (25-35) Mean Corpuscular Hemoglobin Concent 35 g/dL (31-37) Red Cell Distribution Width 13.4 % (11.5-14.5) Platelet Count 128 x10^3/uL (140-400) Neutrophils (%) (Auto) 52 % (31-73) Lymphocytes (%) (Auto) 33 % (24-48) Monocytes (%) (Auto) 11 % (0-9) Eosinophils (%) (Auto) 3 % (0-3) Basophils (%) (Auto) 1 % (0-3) Neutrophils # (Auto) 2.1 x10^3/uL (1.8-7.7) Lymphocytes # (Auto) 1.3 x10^3/uL (1.0-4.8) Monocytes # (Auto) 0.4 x10^3/uL (0.0-1.1) Eosinophils # (Auto) 0.1 x10^3/uL (0.0-0.7) Basophils # (Auto) 0.0 x10^3/uL (0.0-0.2) Urine Collection Type Unknown Urine Color (Auto) Yellow Urine Turbidity Clear Urine pH (Auto) 5.5 (<5.0-8.0) Urine Specific Foster 1.026 (1.000-1.030) Urine Protein (Auto) 50 mg/dL (Negative) Urine Glucose (Auto)(UA) Negative mg/dL (Negative) Urine Ketones (Auto) Negative mg/dL (Negative) Urine Blood (Auto) Trace (Negative) Urine Nitrite Negative (Negative) Urine Bilirubin (Auto) Negative (Negative) Urine Urobilinogen (Auto) 2 mg/dL (Normal) Urine Leukocyte Esterase (Auto) Negative (Negative) Urine RBC Occ /HPF (0-2) Urine WBC Occ /HPF (0-4) Urine Squamous Epithelial Cells Few /LPF Urine Bacteria Few /HPF (0-FEW) Urine Mucus Mod /LPF Sodium Level 141 mmol/L (136-145) Potassium Level 3.5 mmol/L (3.5-5.1) Chloride Level 105 mmol/L (98-107) Carbon Dioxide Level 26 mmol/L (21-32) Anion Gap 10 (6-14) Blood Urea Nitrogen 13 mg/dL (8-26) Creatinine 1.1 mg/dL (0.7-1.3) Estimated GFR (Cockcroft-Gault) 68.8 BUN/Creatinine Ratio 12 (6-20) Glucose Level 111 mg/dL (70-99) Calcium Level 8.8 mg/dL (8.5-10.1) Magnesium Level 1.9 mg/dL (1.8-2.4) Total Bilirubin 1.1 mg/dL (0.2-1.0) Aspartate Amino Transf (AST/SGOT) 76 U/L (15-37) Alanine Aminotransferase (ALT/SGPT) 108 U/L (16-63) Alkaline Phosphatase 87 U/L (46-116) Creatine Kinase 68 U/L (39-308) Total Protein 8.6 g/dL (6.4-8.2) Albumin 4.2 g/dL (3.4-5.0) Albumin/Globulin Ratio 1.0 (1.0-1.7) Lipase 82 U/L (73-393) Laboratory Tests Test 01/01/22 10:10 White Blood Count 4.1 x10^3/uL (4.0-11.0) Red Blood Count 5.19 x10^6/uL (4.30-5.70) Hemoglobin 16.0 g/dL (13.0-17.5) Hematocrit 45.4 % (39.0-53.0) Mean Corpuscular Volume 88 fL (79-100) Mean Corpuscular Hemoglobin 31 pg (25-35) Mean Corpuscular Hemoglobin Concent 35 g/dL (31-37) Red Cell Distribution Width 13.4 % (11.5-14.5) Platelet Count 128 x10^3/uL (140-400) Neutrophils (%) (Auto) 52 % (31-73) Lymphocytes (%) (Auto) 33 % (24-48) Monocytes (%) (Auto) 11 % (0-9) Eosinophils (%) (Auto) 3 % (0-3) Basophils (%) (Auto) 1 % (0-3) Neutrophils # (Auto) 2.1 x10^3/uL (1.8-7.7) Lymphocytes # (Auto) 1.3 x10^3/uL (1.0-4.8) Monocytes # (Auto) 0.4 x10^3/uL (0.0-1.1) Eosinophils # (Auto) 0.1 x10^3/uL (0.0-0.7) Basophils # (Auto) 0.0 x10^3/uL (0.0-0.2) Urine Collection Type Unknown Urine Color (Auto) Yellow Urine Turbidity Clear Urine pH (Auto) 5.5 (<5.0-8.0) Urine Specific Foster 1.026 (1.000-1.030) Urine Protein (Auto) 50 mg/dL (Negative) Urine Glucose (Auto)(UA) Negative mg/dL (Negative) Urine Ketones (Auto) Negative mg/dL (Negative) Urine Blood (Auto) Trace (Negative) Urine Nitrite Negative (Negative) Urine Bilirubin (Auto) Negative (Negative) Urine Urobilinogen (Auto) 2 mg/dL (Normal) Urine Leukocyte Esterase (Auto) Negative (Negative) Urine RBC Occ /HPF (0-2) Urine WBC Occ /HPF (0-4) Urine Squamous Epithelial Cells Few /LPF Urine Bacteria Few /HPF (0-FEW) Urine Mucus Mod /LPF Sodium Level 141 mmol/L (136-145) Potassium Level 3.5 mmol/L (3.5-5.1) Chloride Level 105 mmol/L (98-107) Carbon Dioxide Level 26 mmol/L (21-32) Anion Gap 10 (6-14) Blood Urea Nitrogen 13 mg/dL (8-26) Creatinine 1.1 mg/dL (0.7-1.3) Estimated GFR (Cockcroft-Gault) 68.8 BUN/Creatinine Ratio 12 (6-20) Glucose Level 111 mg/dL (70-99) Calcium Level 8.8 mg/dL (8.5-10.1) Magnesium Level 1.9 mg/dL (1.8-2.4) Total Bilirubin 1.1 mg/dL (0.2-1.0) Aspartate Amino Transf (AST/SGOT) 76 U/L (15-37) Alanine Aminotransferase (ALT/SGPT) 108 U/L (16-63) Alkaline Phosphatase 87 U/L (46-116) Creatine Kinase 68 U/L (39-308) Total Protein 8.6 g/dL (6.4-8.2) Albumin 4.2 g/dL (3.4-5.0) Albumin/Globulin Ratio 1.0 (1.0-1.7) Lipase 82 U/L (73-393) Assessment/Plan -- Kidney stone CT imaging showing 2 mm obstructing left UVJ stone. Creatinine stable at 1.1 UA without any signs of infection. He does not have a leukocytosis. He is afebrile. Discussed stone management options including observation, ESWL and ureteroscopy with laser lithotripsy. Patient very adamant that he does not want to be admitted to the hospital. He would rather observe and would attempt to pass the stone at home. I discussed this with Sarah, nurse practitioner. We will plan to have pain control medication and Flomax for home. Strain urine. Encouraged hydration. --Bladder stone CT imaging showing a 1.8 cm bladder stone. He has weak stream, frequency and urgency. I discussed with the patient that he needs to have a diagnostic cystoscopy in our clinic. Bladder stone likely caused from incomplete emptying. I did offer to complete cystoscopy and cystolitholapaxy if admitted to the hospital, but patient does not want to be admitted due to cost reasons. I did discuss that this can eventually lead to complete urinary retention, renal damage. He is still voiding at this time. They are planning to call our office for follow-up and arrange some type of payment plan as he does not have any insurance at this time. Office number is [phone]. Please call with any other urology concerns ANABEL VALLEJO January 01, 2022 12:56
== END 2022-01-01 13:16 | disposition home or self-care (01) ==
LOC: ER 10:02
DX: N13.2 Hydronephrosis with renal and ureteral calculous obstruction (principal); Z87.891 Personal history of nicotine dependence
CPT/HCPCS: 36415; 74177; 80053; 81001; 82550; 83690; 83735; 85025; 96361; 96374; 96375; 99285; J1885; J2360; J3010; J7030; Q9967